=== PATIENT | male | born 1990 | race Two or more races ===

== ENCOUNTER 2017-10-23 22:06 | Emergency (ER) | payer MEDICAID, OTHER ==
[~2017-10-23] VITALS: Ht 170.2 cm; Wt 68.0 kg
--- NOTE | 2017-10-23 22:06 | NUR ---
HARJEET FROM HOME C/O ABD PAIN, N/V, ADMITS TO ETOH. PT WAS D/C FROM [place] FOR [place]. PT VSS BUT MOANING AND RESTLESS WITH PAIN 11/19. SKIN IS INTACT BUT RED AND FLUSHED ON FACE AND ARMS. A/OX4 ABLE TO MAKE NEEDS KNOWN. WILL CONTINUE TO MONITOR FOR ANY CHANGES DURING THE SHIFT.
--- NOTE | 2017-10-23 22:07 | NUR ---
ER MD GUILLEN AT BEDSIDE
[2017-10-23] MEDS ORDERED: ONDANSETRON HCL/PF 4 MG/2 ML VIAL IVP ONE (22:30)
[2017-10-23] MEDS ORDERED: IV NS 0.9% 1,000 ML BAG IV ONE (22:30)
[2017-10-23] MEDS ORDERED: PANTOPRAZOLE 40 MG VIAL IV ONE (22:30)
[2017-10-23] MEDS ORDERED: ONDANSETRON HCL/PF 4 MG/2 ML VIAL ONE (22:39)
[2017-10-23] MEDS ORDERED: PANTOPRAZOLE 40 MG VIAL ONE (22:39)
[2017-10-23 22:45] LABS: BASOPHILS # (AUTO) 0.1 /CMM (0.0-0.2); BASOPHILS % (AUTO) 0.8 % (0.0-2.0); EOSINOPHILS % (AUTO) 2.6 % (0.0-6.0); HEMATOCRIT 48 % (39-51); HEMOGLOBIN 16.2 g/dL (13.5-17.5); LYMPHOCYTES # (AUTO) 3.4 /CMM (0.8-4.8); LYMPHOCYTES % (AUTO) 26.7 % (20.0-44.0); MEAN CORPUSCULAR HGB CONC 34 g/dl (31.0-36.0); MEAN CORPUSCULAR VOLUME 92 fL (80-96); MONOCYTES # (AUTO) 0.5 /CMM (0.1-1.30); MONOCYTES % (AUTO) 3.9 % (2.0-12.0); NEUTROPHILS # (AUTO) 8.3 /CMM (1.8-8.9); PLATELET COUNT (AUTO) 390 /CMM (150-450); RDW COEFFICIENT OF VARIATION 14.3 (11.5-15.0); RED BLOOD CELL COUNT(AUTO) 5.18 MIL/uL (4.5-6.0); WHITE BLOOD COUNT (AUTO) 12.6 K/uL (4.3-11.0)
[2017-10-23 22:59] LABS: CALCIUM, SERUM 7.9 mg/dL (8.5-10.1); POTASSIUM 3.9 mmol/L (3.5-5.1)
--- NOTE | 2017-10-23 23:00 | NUR ---
PT STATES "THE MEDICAITONS YOU GAVE ME ARE MAKING ME FEEL BETTER". ALSO SPEAKING ABOUT HIS HX HE STATES "I RELAPSDE ON ALCHOL. A WHILE AGO I WAS AN ALCOHOLIC AND DRANK TO THE POINT WHERE MY LIVER FAILED AND WAS WAITING FOR A NEW ONE BUT THEN IT HEALED."
[2017-10-23 23:03] LABS: INR 0.96 (0.87-1.13)
[2017-10-23 23:06] LABS: ALBUMIN 3.6 g/dL (3.4-5.0); BILIRUBIN,TOTAL 0.3 mg/dL (0.2-1.0); TOTAL PROTEIN, SERUM 7.5 g/dL (6.4-8.2)
[2017-10-24 00:05] VITALS: BP 130/78
== END 2017-10-24 00:06 | disposition home or self-care (01) ==
LOC: ER 22:18
DX: K29.20 Alcoholic gastritis without bleeding (principal); F10.20 Alcohol dependence, uncomplicated; F32.9 Major depressive disorder, single episode, unspecified; F90.9 Attention-deficit hyperactivity disorder, unspecified type
CPT/HCPCS: 36415; 80048; 80076; 83690; 85025; 85730; 86850; 96361; 96374; 96375; 99284; A4606; C9113; G0480; J2405; J7030; Z7610

== ENCOUNTER → 2019-01-19 | Emergency (ER) | payer MEDICAID ==
[~2019-01-19] VITALS: Ht 170.2 cm; Wt 68.9 kg
[~2019-01-19] MED LIST: CHLORDIAZEPOXIDE HCL 25 MG CAPSULE ONE; CHLORDIAZEPOXIDE HCL 25 MG CAPSULE PO ONE
--- NOTE | 2019-01-19 07:20 | NUR ---
BIB RA 660,28 YEAR OLD MALE CALLED 911,FEELING SUICIDAL,THINKING OF JUMPING OFF A BRIDGE HAD "20 GLASSES OF WINE". ALERT AND ORIENTED X4, BREATHING EVEN AND UNLABORED WITH NO DISTRESS NOTED. + SI SITTER AT BEDSIDE. SKIN INTACT. WAITING TO BE SEEN BY MD. WILL CONTINUE TO MONITOR
--- NOTE | 2019-01-19 07:20 | NUR ---
TO ER BED 13,SITTER AT BEDSIDE, HECKED FOR CONTRABAND,WANDED BY SECURITY
[2019-01-19 07:59] LABS: APPEARANCE,URINE Clear (CLEAR); BILIRUBIN,URINE Negative (NEGATIVE); BLOOD, URINE Negative Ery/uL (NEGATIVE); COLOR,URINE Yellow (YELLOW); KETONES,URINE 15 (NEGATIVE); LEUKOCYTE ESTERASE ,URINE Negative (NEGATIVE); NITRITE, URINE Negative (NEGATIVE); PROTEIN,URINE Negative (NEGATIVE); UGLUCOSE Negative (NEGATIVE); UROBILINOGEN,URINE 0.2 EU/dL (0.2)
--- NOTE | 2019-01-19 08:00 | NUR ---
PATIENT WAS ABLE TO URINATE, OUTPUT OF 600ML, SPECIMEN WAS COLLECTED AND PICKED UP BY UPWARD BOUND DIRECTOR.
[2019-01-19 08:09] LABS: RBC,URINE 0-2 /HPF (0-2)
[2019-01-19 08:09] LABS: HEMOGLOBIN 15.9 g/dL (13.5-17.5)
[2019-01-19 08:10] LABS: BACTERIA,URINE Rare /HPF (None Seen); SQUAMOUS EPITHELIAL CELL,UR Rare /HPF (None Seen); WBC,URINE 0-2 /HPF (0-3)
[2019-01-19 08:14] LABS: CALCIUM, SERUM 9.4 mg/dL (8.5-10.1)
[2019-01-19 08:16] LABS: BASOPHILS # (AUTO) 0.1 /CMM (0.0-0.2); BASOPHILS % (AUTO) 0.7 % (0.0-2.0); EOSINOPHILS % (AUTO) 2.2 % (0.0-6.0); HEMATOCRIT 46 % (39-51); LYMPHOCYTES # (AUTO) 1.2 /CMM (0.8-4.8); LYMPHOCYTES % (AUTO) 17.7 % (20.0-44.0); MEAN CORPUSCULAR HGB CONC 35 g/dl (31.0-36.0); MEAN CORPUSCULAR VOLUME 96 fL (80-96); MONOCYTES # (AUTO) 0.6 /CMM (0.1-1.30); MONOCYTES % (AUTO) 7.9 % (2.0-12.0); NEUTROPHILS % (AUTO) 71.5 % (43.0-81.0); PLATELET COUNT (AUTO) 271 /CMM (150-450); RED BLOOD CELL COUNT(AUTO) 4.82 MIL/uL (4.5-6.0)
[2019-01-19 08:27] LABS: ALBUMIN 4.5 g/dL (3.4-5.0); BILIRUBIN,DIRECT 0.1 mg/dL (0.0-0.2); BILIRUBIN,TOTAL 0.3 mg/dL (0.2-1.0); TOTAL PROTEIN, SERUM 8.7 g/dL (6.4-8.2)
[2019-01-19 08:28] LABS: SALICYLATE 2.4 mg/dL (2.8-20.0)
--- NOTE | 2019-01-19 10:28 | NUR ---
CALLED [facility].
--- NOTE | 2019-01-19 13:22 | NUR ---
TERRY contacted [facility] and spoke with Pallavi in intake who informed TERRY that they do have male beds available for today. TERRY to fax clinicals. TERRY spoke with CECI Peguero requesting for a lab draw to check pt's alcohol level.
--- NOTE | 2019-01-19 14:03 | NUR ---
RUTH FOR [facility] CALLED; PT HAS A BED AT [facility], SEND LATEST ETOH LEVEL AND NOTES FROM MD SAYING PT IS MEDICALLY CLEARED, RUTH WILL SETUP TRANSPORT, ETA WILL BE AROUND 3PM
--- NOTE | 2019-01-19 14:21 | NUR ---
FAXED UPDATED LABS AND DR'S NOTE TO RUTH AT [facility], .
--- NOTE | 2019-01-19 15:01 | NUR ---
ARRANGEMENTS HAVE BEEN MADE FOR PATIENT TO BE TRANSFERED TO [facility]
--- NOTE | 2019-01-19 15:02 | NUR ---
PATIENT IS MADE AWARE AND MARKETING MGR TIME IS [id number]
--- NOTE | 2019-01-19 15:59 | NUR ---
EMT AT BEDSIDE TO TAKE PATIENT TO [facility]
[2019-01-19 16:00] VITALS: BP 112/65
== END ==
LOC: ER 07:20
DX: F10.10 Alcohol abuse, uncomplicated (principal); R45.851 Suicidal ideations; F32.9 Major depressive disorder, single episode, unspecified; F90.9 Attention-deficit hyperactivity disorder, unspecified type; F17.200 Nicotine dependence, unspecified, uncomplicated; F12.10 Cannabis abuse, uncomplicated; Y90.7 Blood alcohol level of 200-239 mg/100 ml
CPT/HCPCS: 36415; 80048; 80076; 80305; 80307 ×2; 80329; 81001; 85025; 99285; G0480; 81000-TC

== ENCOUNTER 2019-03-28 18:27 | Emergency (ER) | payer MEDICAID ==
[~2019-03-28] VITALS: Ht 170.2 cm; Wt 77.1 kg
--- NOTE | 2019-03-28 18:33 | NUR ---
SECURITY AT BEDSIDE FOR WANDING.
--- NOTE | 2019-03-28 18:37 | NUR ---
BIBRA 858 FROM HOME C/O SI "I WANT TO RUN THROUGH TRAFFIC", -HI. ON ROOM AIR, BREATHING EVENLY AND UNLABORED. KEPT COMFORTABLE, WILL CONTINUE TO MONITOR ACCORDINGLY. SITTER AT BEDSIDE FOR CONSTANT MONITORING.
[2019-03-28 19:05] LABS: BASOPHILS # (AUTO) 0.1 /CMM (0.0-0.2); BASOPHILS % (AUTO) 0.7 % (0.0-2.0); HEMATOCRIT 48 % (39-51); HEMOGLOBIN 16.4 g/dL (13.5-17.5); LYMPHOCYTES % (AUTO) 29.4 % (20.0-44.0); MEAN CORPUSCULAR HGB CONC 34 g/dl (31.0-36.0); MEAN CORPUSCULAR VOLUME 94 fL (80-96); MONOCYTES # (AUTO) 0.4 /CMM (0.1-1.30); MONOCYTES % (AUTO) 4.1 % (2.0-12.0); NEUTROPHILS % (AUTO) 58.8 % (43.0-81.0); PLATELET COUNT (AUTO) 290 /CMM (150-450); RED BLOOD CELL COUNT(AUTO) 5.15 MIL/uL (4.5-6.0); WHITE BLOOD COUNT (AUTO) 10.2 K/uL (4.3-11.0)
[2019-03-28 19:23] LABS: ALANINE AMINOTRANSFERASE 41 U/L (12-78); ALBUMIN 3.8 g/dL (3.4-5.0); ALCOHOL, BLOOD 192 mg/dL (0-0); ALKALINE PHOSPHATASE 82 U/L (46-116); ASPARTATE AMINOTRANSFERASE 27 U/L (15-37); BILIRUBIN,DIRECT 0.1 mg/dL (0.0-0.2); BILIRUBIN,TOTAL 0.3 mg/dL (0.2-1.0); CALCIUM, SERUM 8.7 mg/dL (8.5-10.1); CARBON DIOXIDE 32 mmol/L (21-32); CHLORIDE 104 mmol/L (98-107); CREATININE 1.1 mg/dL (0.6-1.3); GLUCOSE 103 mg/dL (74-106); POTASSIUM 3.8 mmol/L (3.5-5.1); SALICYLATE 3.6 mg/dL (2.8-20.0); SODIUM SERUM 144 mmol/L (136-145); TOTAL PROTEIN, SERUM 7.7 g/dL (6.4-8.2); UREA NITROGEN, BLOOD 5 mg/dL (7-18)
[2019-03-28 19:24] LABS: ACETAMINOPHEN < 2 ug/ml (10-30)
[2019-03-28 19:57] LABS: APPEARANCE,URINE Clear (CLEAR); BILIRUBIN,URINE Negative (NEGATIVE); BLOOD, URINE Trace-intact Ery/uL (NEGATIVE); COLOR,URINE Yellow (YELLOW); KETONES,URINE Trace (NEGATIVE); LEUKOCYTE ESTERASE ,URINE Negative (NEGATIVE); NITRITE, URINE Negative (NEGATIVE); PH,URINE 6.5 (5.0-8.0); PROTEIN,URINE Negative (NEGATIVE); UGLUCOSE Negative (NEGATIVE); UROBILINOGEN,URINE 0.2 EU/dL (0.2)
[2019-03-28 20:04] LABS: BACTERIA,URINE Rare /HPF (None Seen); SQUAMOUS EPITHELIAL CELL,UR Few /HPF (None Seen); WBC,URINE NONE SEEN /HPF (0-3)
[2019-03-28] MEDS ORDERED: LORAZEPAM 1 MG TABLET ONE (20:37)
[2019-03-28] MEDS ORDERED: LORAZEPAM 1 MG TABLET PO ONE (21:00)
[2019-03-28] MEDS ORDERED: FAMOTIDINE (20 MG) 20 MG TABLET ONE (21:59)
[2019-03-28] MEDS ORDERED: FAMOTIDINE (20 MG) 20 MG TABLET PO ONE (22:00)
--- NOTE | 2019-03-29 00:50 | NUR ---
YENI CRISIS MECHANICAL SERVICE TECHNICIAN AT BEDSIDE FOR EVAL.
[2019-03-29] MEDS ORDERED: LORAZEPAM 1 MG TABLET PO ONE ×2 (02:30→09:00)
[2019-03-29] MEDS ORDERED: LORAZEPAM 1 MG TABLET ONE ×2 (02:30→08:39)
--- NOTE | 2019-03-29 07:41 | NUR ---
ordered breakfast tray
--- NOTE | 2019-03-29 07:47 | NUR ---
pt lying in bed, asleep but easily arousable. sitter at bedside. NAD noted. updated pt on POC.
--- NOTE | 2019-03-29 08:22 | NUR ---
provided w breakfast tray, patient tolerating food well.
[2019-03-29] MEDS ORDERED: LORAZEPAM INJ 2 MG/ML VIAL IV ONE (09:00)
--- NOTE | 2019-03-29 09:31 | NUR ---
followed up with [facility]. they requested to have clinicals faxed over again. will fax clinicals to intake.
--- NOTE | 2019-03-29 10:33 | NUR ---
pt denies SI/HI, wants to go home. pt does not have phone or wallet with him, but reports he is able to get into his apartment, requesting tap card. tap card provided. Patient discharged to home in stable condition. Written and verbal after care instructions given. Patient verbalizes understanding of instruction. ambulatory with steady gait. NAD noted. belongings returned to pt.
[2019-03-29 10:35] VITALS: BP 136/97
== END 2019-03-29 10:36 | disposition home or self-care (01) ==
LOC: ER 18:28
DX: R45.851 Suicidal ideations (principal); F10.20 Alcohol dependence, uncomplicated; F32.9 Major depressive disorder, single episode, unspecified; F90.9 Attention-deficit hyperactivity disorder, unspecified type; F17.200 Nicotine dependence, unspecified, uncomplicated; Y90.6 Blood alcohol level of 120-199 mg/100 ml
CPT/HCPCS: 36415; 80048; 80076; 80305; 80307; 80329; 81001; 85025; 99284; G0480; 81000-TC

== ENCOUNTER 2020-02-12 04:56 | Emergency (ER) | payer MEDICAID ==
[~2020-02-12] VITALS: Ht 170.2 cm; Wt 85.3 kg
--- NOTE | 2020-02-12 05:05 | NUR ---
PT BIBA FOUND LYING IN THE MIDDLE OF THE STREET FOR ALTERED AND POSSIBLE ETOH. PT AAOX1, VSS, RESPIRATIONS EVEN AND UNLABORED ON RA W/ NAD NOTED. PT CONNECTED TO THE LAMINATING MACHINE OPERATOR HELPER AND POX.
[2020-02-12] MEDS ORDERED: LIDOCAINE 2% JEL UROJET 10 ML MM ONE (05:11)
--- NOTE | 2020-02-12 05:22 | NUR ---
URINE COLLECTED AND SENT TO LAB.
[2020-02-12 05:23] LABS: BASOPHILS # (AUTO) 0.1 /CMM (0.0-0.2); EOSINOPHILS % (AUTO) 8.3 % (0.0-6.0); HEMATOCRIT 43 % (39-51); HEMOGLOBIN 14.5 g/dL (13.5-17.5); LYMPHOCYTES # (AUTO) 2.9 /CMM (0.8-4.8); LYMPHOCYTES % (AUTO) 32.2 % (20.0-44.0); MEAN CORPUSCULAR HGB CONC 34 g/dl (31.0-36.0); MEAN CORPUSCULAR VOLUME 91 fL (80-96); MONOCYTES # (AUTO) 0.5 /CMM (0.1-1.30); MONOCYTES % (AUTO) 5.8 % (2.0-12.0); NEUTROPHILS # (AUTO) 4.8 /CMM (1.8-8.9); NEUTROPHILS % (AUTO) 52.7 % (43.0-81.0); PLATELET COUNT (AUTO) 182 /CMM (150-450); RED BLOOD CELL COUNT(AUTO) 4.72 MIL/uL (4.5-6.0); WHITE BLOOD COUNT (AUTO) 9.1 K/uL (4.3-11.0)
[2020-02-12 05:41] LABS: APPEARANCE,URINE CLEAR (CLEAR); BILIRUBIN,URINE NEGATIVE (NEGATIVE); BLOOD, URINE NEGATIVE Ery/uL (NEGATIVE); COLOR,URINE YELLOW (YELLOW); KETONES,URINE NEGATIVE (NEGATIVE); LEUKOCYTE ESTERASE ,URINE NEGATIVE (NEGATIVE); NITRITE, URINE NEGATIVE (NEGATIVE); PROTEIN,URINE NEGATIVE (NEGATIVE); UGLUCOSE NEGATIVE (NEGATIVE); UROBILINOGEN,URINE 0.2 EU/dL (0.2)
[2020-02-12 05:59] LABS: BILIRUBIN,DIRECT 0.1 mg/dL (0.0-0.2); BILIRUBIN,TOTAL 0.3 mg/dL (0.2-1.0); CALCIUM, SERUM 8.4 mg/dL (8.5-10.1); POTASSIUM 3.6 mmol/L (3.5-5.1); TOTAL PROTEIN, SERUM 7.3 g/dL (6.4-8.2)
--- NOTE | 2020-02-12 07:00 | NUR ---
Patient is resting comfortably in bed with eyes closed. Easily aroused. VSS
--- NOTE | 2020-02-12 11:20 | NUR ---
pt is awake in bed. not in any resp distress. ambulated from bed to bathroom on steady gait w/o any assist. made aware
[2020-02-12] MEDS ORDERED: CHLORDIAZEPOXIDE HCL 25 MG CAPSULE ONE (11:49)
[2020-02-12] MEDS ORDERED: MAG HYDROX/AL HYDROX/SIMETH 30 ML UDC ONE (11:49)
[2020-02-12] MEDS ORDERED: FAMOTIDINE (20 MG) 20 MG TABLET ONE (11:50)
[2020-02-12] MEDS: FAMOTIDINE (20 MG) 20 MG TABLET PO ONE (12:00)
[2020-02-12] MEDS: CHLORDIAZEPOXIDE HCL 25 MG CAPSULE PO ONE (12:00)
[2020-02-12] MEDS: MAG HYDROX/AL HYDROX/SIMETH 30 ML UDC PO ONE (12:00)
--- NOTE | 2020-02-12 12:02 | NUR ---
Patient discharged to home in stable condition. Written and verbal after care instructions given. Patient verbalizes understanding of instruction.IV removed. Catheter intact and site benign. Pressure and 4x4 applied to site. No bleeding noted. Pt ambulatory with a steady gait
[2020-02-12 12:23] VITALS: BP 132/76
== END 2020-02-12 12:03 | disposition home or self-care (01) ==
LOC: ER 04:56
DX: F10.10 Alcohol abuse, uncomplicated (principal); F32.9 Major depressive disorder, single episode, unspecified; F90.9 Attention-deficit hyperactivity disorder, unspecified type; R41.82 Altered mental status, unspecified; Y90.8 Blood alcohol level of 240 mg/100 ml or more
CPT/HCPCS: 36415; 70450; 80048; 80076; 80305; 80307; 80329; 81001; 85025; 99285; G0480; J3490; 81000-TC